=== PATIENT | male | born 1950 ===

== ENCOUNTER 2023-07-28 11:46 | Emergency (ER) | payer MEDICARE ==
[~2023-07-28] VITALS: Ht 175.3 cm; Wt 77.1 kg
[2023-07-28 12:18] VITALS: BP 112/70; PULSE 85; RESP 18; TEMP 98.7; O2SAT 100
[2023-07-28 13:10] LABS: WHITE BLOOD COUNT 4.1 X10'3 (4.5-11.0)
[2023-07-28 13:12] LABS: HEMATOCRIT 23.5 % (42.0-52.0); MEAN CORPUSCULAR HGB CONC 27.9 g/dL (33.0-36.5); MEAN CORPUSCULAR VOLUME 57.4 FL (78-98); MEAN PLATELET VOLUME 8.4 FL (7.4-10.4); PLATELET COUNT 352 X10'3 (140-440); RED CELL DISTRIBUTION WIDTH 22.4 % (11.5-14.5)
[2023-07-28 13:27] LABS: HEMOGLOBIN 6.6 g/dl (14.0-17.9)
[2023-07-28 13:34] LABS: ALBUMIN 3.9 G/DL (3.4-5.0); ANION GAP 6 (8-16); BLOOD UREA NITROGEN 14 MG/DL (7-18); BUN/CREATININE RATIO 15.1 (10.0-20.0); CALCIUM 8.4 MG/DL (8.5-10.1); CHLORIDE 103 MMOL/L (99-107); CREATININE 0.93 MG/DL (0.60-1.10); GLUCOSE 104 MG/DL (70-104); POTASSIUM 4.1 MMOL/L (3.5-5.1); PRO BRAIN NATRIURETIC PEPTIDE 560 PG/ML (0-125); SODIUM 138 MMOL/L (135-145); TOTAL CARBON DIOXIDE 28.7 MMOL/L (24-32); eCRCL 73 ML/MIN; eGFR 80 ML/MIN
[2023-07-29 09:42] LABS: TOTAL CELLS COUNTED 100
[2023-07-29 09:43] LABS: ANISOCYTOSIS 3+; HYPOCHROMASIA 3+; MICROCYTOSIS 3+; PLATELET ESTIMATE NORMAL
[2023-07-29 09:44] LABS: ACANTHOCYTES FEW; BURR CELLS FEW; POLYCHROMASIA FEW
== END 2023-07-28 20:24 | disposition left against medical advice (07) ==
LOC: ER 11:46
DX: D64.9 Anemia, unspecified (principal); Z53.21 Procedure and treatment not carried out due to patient leaving prior to being seen by health care provider
CPT/HCPCS: 36415; 71045; 80048; 83880; 84484; 85007; 85025; 86885; 86900; 86901; 99281